=== PATIENT | male | born 1990 | race Caucasian/White ===

== ENCOUNTER 2018-10-20 11:21 | Emergency (ER) | payer OTHER | END 2018-10-20 14:16 | disposition home or self-care (01) | LOC: FTE 14:16 | DX: S92.514A Nondisplaced fracture of proximal phalanx of right lesser toe(s), initial encounter for closed fracture (principal); F17.210 Nicotine dependence, cigarettes, uncomplicated; W22.01XA Walked into wall, initial encounter; Y92.9 Unspecified place or not applicable | CPT/HCPCS: 73660; 99283-25 ==

== ENCOUNTER 2019-06-05 08:37 | Emergency (ER) | payer OTHER | END 2019-06-05 11:07 | disposition home or self-care (01) | LOC: E/R 08:37 | DX: R55 Syncope and collapse (principal); S61.211A Laceration without foreign body of left index finger without damage to nail, initial encounter; S00.531A Contusion of lip, initial encounter; W01.198A Fall on same level from slipping, tripping and stumbling with subsequent striking against other object, initial encounter; W26.8XXA Contact with other sharp object(s), not elsewhere classified, initial encounter; Y92.9 Unspecified place or not applicable | CPT/HCPCS: 12001; 93005; 99283-25 ==